=== PATIENT | female | born 1940 | race Caucasian/White ===

== ENCOUNTER 2017-01-16 07:34 | Day surgery (SDC) | payer MEDICARE, OTHER ==
[~2017-01-16 07:34] MED LIST: Lactated Ringers 1,000 ML IV SCH
--- NOTE | 2017-01-16 09:21 | PCM.HP ---
H&P History of Present Illness - General Date of Service: 01/16/17 Admit Problem/Dx: Admission Diagnosis/Problem Admission Diagnosis/Problem Lumpectomy of breast Source of Information: Patient, Old records History Limitations: Reports: No limitations - History of Present Illness Initial Comments - Free Text/Narative: Here for left lumpectomy and sentinel node biopsy for left breat ca. - Related Data Allergies/Adverse Reactions: Allergies Allergy/AdvReac Type Severity Reaction Status Date / Time CEFALEXIN Allergy Mild Diarrhea Uncoded 06/26/16 11:27 Home Medications: Home Meds Aspirin [[place] Aspirin] 81 mg PO DAILY 05/28/16 [History] Calcium Carb & Citrate/Vit D3 [Calcium + D3 ER Tablet] 1 ea PO DAILY 05/28/16 [ History] Docusate Calcium 1 cap PO DAILY PRN 05/28/16 [History] Lisinopril [Lisinopril] 10 mg PO DAILY 05/28/16 [History] Multivitamin with Minerals [Multiple Vitamin] 1 ea PO DAILY 05/28/16 [History] PARoxetine [Paxil] 10 mg PO DAILY 05/28/16 [History] Simvastatin [Simvastatin] 20 mg PO DAILY 05/28/16 [History] Famciclovir [Famciclovir] 500 mg PO ASDIRECTED PRN 06/21/16 [History] Cholecalciferol (Vitamin D3) [Vitamin D3] 1,000 units PO DAILY 01/07/17 [History ] Past Medical History HEENT History: Reports: Cataract Cardiovascular History: Reports: High cholesterol, Hypertension Respiratory History: Reports: None Gastrointestinal History: Reports: None Genitourinary History: Reports: None [employer] History: Reports: Other OB/BYN History: II PARA II Musculoskeletal History: Reports: Osteoporosis Neurological History: Reports: None Psychiatric History: Reports: Depression Other Psychiatric History: HX MAJOR DEPRESSIVE DISORDER, Endocrine/Metabolic History: Reports: None Hematologic History: Reports: None Immunologic History: Reports: None Oncologic (Cancer) History: Reports: Breast Dermatologic History: Reports: Other (see below) - Infectious Disease History Infectious Disease History: Reports: Chicken pox, Measles, Shingles - Past Surgical History Head Surgeries/Procedures: Reports: None HEENT Surgical History: Reports: Cataract surgery GI Surgical History: Reports: Colonoscopy Female Surgical History: Reports: Breast biopsy Other Female Surgeries/Procedures: LEFT BREAST BX Social & Family History - Family History Other HEENT Family History: MOTHER WITH BREAST CA AT 51 OBGYN: - Tobacco Use Smoking Status *Q: Never Smoker - Alcohol Use Number of Drinks Per Day: 1 - Recreational Drug Use Recreational Drug Use: No Drug Use in Last 12 Months: No H&P Review of Systems - Review of Systems: Review Of Systems: ROS reveals no pertinent complaints other than HPI. Exam - Exam Exam: See Below - Vital Signs Weight: 60.328 kg - Exam General: alert, oriented Lungs: Clear to auscultation, Normal respiratory effort Cardiovascular: regular rate, regular rhythm Neuro Extensive - Mental Status: alert, oriented x3, normal mood/affect *Q Meaningful Use (ADM) - VTE *Q VTE Criteria *Q: - Stroke *Q Stroke Criteria *Q: - AMI *Q AMI Criteria *Q: Problem List Initiated/Reviewed/Updated: Yes Orders Last 24hrs: Active Orders 24 hr Category Date Time Status Patient Status [ADT] Routine ADT 01/16/17 07:30 Ordered Patient to Empty Bladder [RC] ASDIRECTED Care 01/16/17 07:30 Active Verify Patient Consent Obtain [RC] ASDIRECTED Care 01/16/17 07:30 Active Nothing Per Oral Diet [DIET] Diet 01/16/17 Breakfast Ordered Guide Ndl Wire Loc LT [MY] Routine Exams 01/16/17 07:30 Ordered Tumor Local Limited [NM] Routine Exams 01/16/17 07:30 Ordered Lactated Ringers [Ringers, Lactated] 1,000 ml Med 01/16/17 07:30 Active IV ASDIRECTED Peripheral IV Insertion Adult [OM.PC] Routine Oth 01/16/17 07:30 Ordered Sequential Compression Device [OM.PC] Routine Oth 01/16/17 07:30 Ordered Medication Orders Lactated Ringer's (Ringers, Lactated) 1,000 mls @ 125 mls/hr IV ASDIRECTED [facility] Last Admin: 01/16/17 08:42 Dose: 125 mls/hr Assessment/Plan Comment:: A) Left Breast Ca P) Will proceed with L Needle loc lumpectomy and [place] Node Bx
[2017-01-16] MEDS ORDERED: ePHEDrine 50 MG/ML SDV IV ONE (10:00)
[2017-01-16] MEDS ORDERED: Ondansetron 4 MG/2 ML SDV IVPUSH ONE (10:00)
[2017-01-16] MEDS ORDERED: fentaNYL 100 MCG/2 ML SDV IV ONE (10:00)
[2017-01-16] MEDS ORDERED: Lactated Ringers 1,000 ML IV ONE (10:00)
[2017-01-16] MEDS ORDERED: Propofol 200 MG/20 ML SDV IV ONE (10:00)
[2017-01-16] MEDS ORDERED: Midazolam 1 MG/ML 2 ML SDV IV ONE (10:00)
[2017-01-16] MEDS ORDERED: Dexamethasone 4 MG/ML 5 ML MDV IVPUSH ONE (10:00)
[2017-01-16] MEDS ORDERED: Lidocaine 2% 100 MG/5 ML Syringe IVPUSH ONE (10:00)
--- NOTE | 2017-01-16 11:36 | PCM.OPNOTE ---
- General Post-Op/Procedure Note Date of Surgery/Procedure: 01/16/17 Operative Procedure(s): L Needle Loc Lumpectomy and [place] Node Bx Pre Op Diagnosis: L Breast Ca Anesthesia Technique: General LMA Primary Surgeon: Andrae ADAIR in mLs: 10 Complications: None Condition: Good
--- NOTE | 2017-01-16 13:18 | NM ---
INDICATION: Left breast carcinoma by biopsy. NUCLEAR MEDICINE TUMOR LOCALIZATION, LIMITED: 1.2 mL fluid with 1.2 mCi sulfur colloid technetium-99m was injected at the left breast injection site at [address] Mohs. PEREIRA
--- NOTE | 2017-01-16 13:20 | MY ---
INDICATION: Left breast CA by biopsy. MAMMOGRAPHY GUIDED NEEDLE WIRE LOCALIZATION LEFT: Utilizing mammographic localization, left CC view was obtained with grid after the procedure was discussed with the patient. A post biopsy coil in the left breast was localized with a [place]-Mammalok type needle after aseptic conditioning and local anesthetic. Successful localization was obtained. Results were discussed with Dr. Madera. The patient was sent to surgery in good condition. IMPRESSION: Satisfactory needle localization. KELLI
--- NOTE | 2017-01-16 13:21 | MY ---
INDICATION: Left breast localization breast specimen. MAMMOGRAM SURGICAL SPECIMEN OF THE BREAST: After needle localization and excisional biopsy, a sample was sent to radiology for specimen radiography, utilizing mammography. Two images were obtained and revealed the needle through the area of the mass with the biopsy coil adjacent to the shaft. IMPRESSION: Satisfactory excisional biopsy. Report was called to O.R. at 1054 hours, 01/16/2017. KELLI
[2017-01-16 13:57] VITALS: BP 140/63
--- NOTE | 2017-01-17 07:57 | OR ---
DATE OF OPERATION: 01/16/2017 SURGEON: Andrae Madera MD PREOPERATIVE DIAGNOSIS: Left breast cancer. POSTOPERATIVE DIAGNOSIS: Left breast cancer. PROCEDURES: 1. Left needle localization lumpectomy. 2. Left axillary sentinel node biopsy. 3. Injection of technetium-99 sulfur colloid. 4. Injection of Isoflurane Blue. ANESTHESIA: General. PROCEDURE IN DETAIL: The patient was brought to Radiology, where technetium-99m was injected intradermally at the lateral areola. She was then brought to the mammogram area, where needle localization was performed. Films were reviewed with Dr. Jara. She was then brought to the operating room, where general anesthesia was administered with laryngeal mask airway. The left chest and axillary region were prepped with ChloraPrep and draped sterilely. An elliptical skin incision was made in the upper mid breast over the area of abnormality. Dissection was continued circumferentially using electrocautery. The needle and wire were cut. The specimen was then dissected posteriorly. Margins were all orientated for the pathologist. The specimen was palpated, and it appears that the posterior margin may be close, so a new rim of posterior tissue measuring approximately 5 mm in diameter was taken to ensure a clear margin. Specimen radiograph was sent, and it looks like the lesion was removed. The wound was closed in two layers with 2-0 Vicryl subcutaneous sutures and interrupted 5-0 Prolene skin sutures. Next, the axillary sentinel node portion was done. The counts were highest in the mid axilla, and a transverse incision was made over this. Dissection was continued to find the first sentinel node. The 10 second count was 71,870. Two additional lymph nodes with activity were found in the level 1 and level 2 node regions. The counts were 11,438 and 12,873. No other significant activity was identified. The axilla was hemostatic and closed in two layers with 2-0 Vicryl subcutaneous sutures and a running 4-0 Vicryl subcuticular suture. Benzoin and Steri-Strips were placed and a sterile bulky pressure dressing applied. The patient tolerated the procedure well. Estimated blood loss was 10 mL. She returned to postanesthesia in stable condition. /[id number] ADDI/NORM
== END 2017-01-16 13:40 | disposition home or self-care (01) ==
LOC: FB.SDS 07:34
PROVIDERS: ATTEND Surgery
DX: C50.912 Malignant neoplasm of unspecified site of left female breast (principal); I10 Essential (primary) hypertension; E78.00 Pure hypercholesterolemia, unspecified; F32.9 Major depressive disorder, single episode, unspecified; Z88.8 Allergy status to other drugs, medicaments and biological substances; Z79.82 Long term (current) use of aspirin; Z79.899 Other long term (current) drug therapy; Z98.890 Other specified postprocedural states
CPT/HCPCS: 00400; 19281; 38500; 38792; 76098; 78800; 88271; 88274; 88291; 88307; 88342; 88360; J1100; J2250; J2405; J2704; J3010; J7120